=== PATIENT | male | born 1975 | race Caucasian/White ===

== ENCOUNTER 2024-04-18 20:00 | Inpatient (IN) ==
[2024-04-18] MEDS ORDERED: Heparin DRIP 25,000 UNITS BAG 25,000 UNITS/250 ML BAG IV ONE (20:53)
[2024-04-18] MEDS: Heparin DRIP 25,000 UNITS BAG 25,000 UNITS/250 ML BAG IV SCH (20:56)
[2024-04-18] MEDS ORDERED: Heparin 5000 UNITS/ML 1 mL VIAL IV SCH (21:00)
[2024-04-18] MEDS: Acetaminophen IV 1 GM/100ML 1,000 MG/100 ML BAG IV ONE (21:11)
[2024-04-18 21:41] LABS: ABS Basophils 0.1 10^3/uL (0.0-0.1); ABS Monocytes 0.8 10^3/uL (0.0-1.1); ABS Neutrophils 9.5 10^3/uL (1.5-7.6); ABS Nucleated RBC 0.01 10^3/ul; Eosinophil % 0.3 %; Hematocrit 46.4 % (38-53); Hemoglobin 15.3 g/dL (13.2-16.3); Lymphocyte % 8.8 %; Mean Corpuscular Hemoglobin 29.4 pg (27-33); Mean Corpuscular Hgb Conc 32.9 g/dL (31-36); Mean Corpuscular Volume 89.4 fL (80-97); Mean Platelet Volume 8.6 fL (7.5-11.2); Nucleated Red Blood Cells % 0.1 %/100WBC (0.0-0.8); Platelet Count 165 10^3/uL (150-450); Red Blood Count 5.18 10^6/uL (4.06-5.63); Red Cell Distribution Width 14.9 % (12-17); White Blood Count 11.4 10^3/uL (3.6-10.2)
[2024-04-18 22:03] LABS: Creatinine, Serum 1.47 mg/dL (0.67-1.17); eGFR CKD-EPI 57.7 (>60)
[2024-04-18] MEDS ORDERED: Vancomycin 1,000 MG in NS 0.9% 250 ml 250 ML IVPB SCH (22:29)
[2024-04-18] MEDS: Cefepime 2 GM in Dextrose 2 GM/50 ML BAG IV SCH (23:44)
[2024-04-19] MEDS ORDERED: Morphine 2 MG/ML SYRINGE IV PRN (00:18)
[2024-04-19] MEDS ORDERED: RIMEGEPANT 75 MG PO PRN (00:19)
[2024-04-19] MEDS: Lactated Ringers 1000 ml BAG 1,000 ML IV ONE (00:22)
[2024-04-19] MEDS: Vancomycin 1,500 MG in NS 0.9% 250 ml 250 ML IVPB ONE (00:22)
[2024-04-19] MEDS ORDERED: Vancomycin per Pharmacy 1 EA NOTE FOLLOW UP PRN (00:51)
[2024-04-19 06:15] LABS: ABS Monocytes 0.5 10^3/uL (0.0-1.1); ABS Nucleated RBC 0.01 10^3/ul; Eosinophil % 0.5 %; Hematocrit 41.5 % (38-53); Hemoglobin 14.3 g/dL (13.2-16.3); Lymphocyte % 12.8 %; Mean Corpuscular Hemoglobin 30.6 pg (27-33); Mean Corpuscular Hgb Conc 34.3 g/dL (31-36); Mean Platelet Volume 8.6 fL (7.5-11.2); Nucleated Red Blood Cells % 0.1 %/100WBC (0.0-0.8); Platelet Count 135 10^3/uL (150-450); Red Blood Count 4.67 10^6/uL (4.06-5.63); Red Cell Distribution Width 15.1 % (12-17); White Blood Count 7.5 10^3/uL (3.6-10.2)
[2024-04-19 07:30] LABS: Albumin 3.6 g/dL (3.2-5.2); Albumin/Globulin Ratio 2.1 (1-3); C Reactive Protein 145.31 mg/L (<8.01); Calcium 8.4 mg/dL (8.6-10.3); Creatinine, Serum 1.33 mg/dL (0.67-1.17); Globulin 1.7 g/dL (2-4); Potassium 3.6 mmol/L (3.5-5.0); Total Protein 5.3 g/dL (6.4-8.9); eGFR CKD-EPI 65.1 (>60)
[2024-04-19] MEDS: Sulfur Hexaflouride MICROSPHR 25 MG VIAL IV PRN (08:30)
[2024-04-19] MEDS ORDERED: Sulfamethox/Trimethoprim SS TAB 400/80 mg PO SCH (09:00)
[2024-04-19] MEDS: CARIPRAZINE 1.5 MG PO SCH (09:31)
[2024-04-19] MEDS: Polyethylene Glycol 3350 17 GM PACKET PO SCH (09:36)
[2024-04-19] MEDS: TESTOSTERONE GEL 25 MG (NF) IN 2.5 GM SIZE PACKET TOPICAL SCH (09:47)
[2024-04-19] MEDS: Vancomycin 1000 MG in NS 0.9% 250 ML IVPB SCH (10:21)
[2024-04-19] MEDS: CMCS:Desvenlafaxine 50 mg TAB ER (NF) PO SCH (10:25)
[2024-04-19] MEDS: Senna TAB 8.6 mg TAB PO SCH (20:43)
[2024-04-20 06:01] LABS: ABS Lymphocytes 0.7 10^3/uL (1.0-4.8); ABS Monocytes 0.4 10^3/uL (0.0-1.1); ABS Neutrophils 5.6 10^3/uL (1.5-7.6); ABS Nucleated RBC 0.01 10^3/ul; Eosinophil % 0.5 %; Hematocrit 42.6 % (38-53); Hemoglobin 14.6 g/dL (13.2-16.3); Lymphocyte % 9.8 %; Mean Corpuscular Hemoglobin 29.9 pg (27-33); Mean Corpuscular Hgb Conc 34.2 g/dL (31-36); Mean Corpuscular Volume 87.4 fL (80-97); Mean Platelet Volume 8.2 fL (7.5-11.2); Nucleated Red Blood Cells % 0.1 %/100WBC (0.0-0.8); Platelet Count 177 10^3/uL (150-450); Red Blood Count 4.87 10^6/uL (4.06-5.63); Red Cell Distribution Width 14.6 % (12-17); White Blood Count 6.8 10^3/uL (3.6-10.2)
[2024-04-20 06:44] LABS: Calcium 9.2 mg/dL (8.6-10.3); Creatinine, Serum 1.09 mg/dL (0.67-1.17); Magnesium 2.3 mg/dL (1.9-2.7); Potassium 4.1 mmol/L (3.5-5.0); eGFR CKD-EPI 82.7 (>60)
[2024-04-20] MEDS ORDERED: Vancomycin Trough Check NOTE FOLLOW UP ONE (09:00)
[2024-04-20 10:13] VITALS: BP 153/107
[2024-04-20 19:26] LABS: Mycophenolic Acid 1.9 mcg/mL (1.0 - 3.5)
== END 2024-04-20 13:08 | disposition home or self-care (01) | DRG 720 ==
LOC: ED 20:00 → SUATTDRO 22:19 → EDHOLD 22:19 → MEDTELE 23:52
PROVIDERS: ADMIT Internal Medicine; ATTEND Family Medicine